=== PATIENT | male | born 1980 | race Asian ===

== ENCOUNTER 2019-12-05 19:06 | Emergency (ER) | payer SELFPAY ==
[2019-12-05] MEDS ORDERED: NA CHLORIDE 0.9% 1,000 ML ONE ×2 (20:32→21:15)
[2019-12-05 20:41] LABS: Absolute Lymphocytes (CBC) 1.4 K/uL (0.7-4.9); Basophils % 0.3 % (0-1.3); Hematocrit 49.4 % (39.6-49.0); Lymphocytes % 13.6 % (15.3-44.8); MPV 9.7 fL (7.6-11.3); RBC Red Blood Cell Count 5.43 M/uL (4.33-5.43)
[2019-12-05 20:41] LABS: Urine Blood TRACE (NEG); Urine Glucose NEGATIVE (NEG); Urine Protein 1+ (NEG); Urine Specific Gravity 1.025 (1.005-1.030)
--- NOTE | 2019-12-05 20:44 | RAD REPORT ---
EXAM DESCRIPTION: RAD - Chest Single View - 12/05/2019 8:33 pm CLINICAL HISTORY: COUGH Chest pain. COMPARISON: No comparisons FINDINGS: Portable technique limits examination quality. The lungs are grossly clear. The heart is normal in size. No displaced fractures. IMPRESSION: No acute intrathoracic process suspected.
--- NOTE | 2019-12-05 20:55 | EDPHYS ---
Physician Documentation [facility] Name: Fitz Marshall Age: 38 yrs Sex: Male : 1980 Arrival Date: 12/05/2019 Time: 19:07 Bed 7 Private MD: Physician Crispin Guadalupe HPI: 12/04 20:01 This 38 yrs old Male presents to ER via Ambulatory with complaints of Headache. vicente 20:01 The patient complains of pain to the top of head, forehead, left frontal area and left vicente side of the back of head. The patient describes the headache as aching. 20:01 Onset: The symptoms/episode began/occurred 2 day(s) ago. The patient or guardian vicente reports cough, that is intermittent. Onset: The symptoms/episode began/occurred 2 day(s) ago. Modifying factors: The symptoms are alleviated by nothing. the symptoms are aggravated by activity. WEAK, COUGH, WORKING OUT. Severity of symptoms: At its worst the pain was mild, in the emergency department the pain is unchanged. Headache History: The patient has had previous headaches and this one is similar to previous episodes. Historical: - Allergies: 19:46 No Known Allergies; lp1 - Home Meds: 19:46 None [Active]; lp1 - PMHx: 19:46 None; lp1 - PSHx: 19:46 None; lp1 - Immunization history:: Adult Immunizations up to date. - Social history:: Smoking status: Patient denies any tobacco usage or history of. - Family history:: not pertinent. ROS: 20:01 Constitutional: Negative for fever, chills, and weight loss, Eyes: Negative for injury, vicente pain, redness, and discharge, ENT: Negative for injury, pain, and discharge, Neck: Negative for injury, pain, and swelling, Cardiovascular: Negative for chest pain, palpitations, and edema, Abdomen/GI: Negative for abdominal pain, nausea, vomiting, diarrhea, and constipation, Back: Negative for injury and pain, : Negative for injury, bleeding, discharge, and swelling, MS/Extremity: Negative for injury and deformity, Skin: Negative for injury, rash, and discoloration, Neuro: Negative for headache, weakness, numbness, tingling, and seizure, Psych: Negative for depression, anxiety, suicide ideation, homicidal ideation, and hallucinations, Allergy/Immunology: Negative for hives, rash, and allergies, Endocrine: Negative for neck swelling, polydipsia, polyuria, polyphagia, and marked weight changes, Hematologic/Lymphatic: Negative for swollen nodes, abnormal bleeding, and unusual bruising. 20:01 Respiratory: Positive for cough, with clear sputum. Exam: 20:01 Constitutional: This is a well developed, well nourished patient who is awake, alert, vicente and in no acute distress. Head/Face: Normocephalic, atraumatic. Eyes: Pupils equal round and reactive to light, extra-ocular motions intact. Lids and lashes normal. Conjunctiva and sclera are non-icteric and not injected. Cornea within normal limits. Periorbital areas with no swelling, redness, or edema. ENT: Nares patent. No nasal discharge, no septal abnormalities noted. Tympanic membranes are normal and external auditory canals are clear. Oropharynx with no redness, swelling, or masses, exudates, or evidence of obstruction, uvula midline. Mucous membranes moist. Neck: Trachea midline, no thyromegaly or masses palpated, and no cervical lymphadenopathy. Supple, full range of motion without nuchal rigidity, or vertebral point tenderness. No Meningismus. Chest/axilla: Normal chest wall appearance and motion. Nontender with no deformity. No lesions are appreciated. Cardiovascular: Regular rate and rhythm with a normal S1 and S2. No gallops, murmurs, or rubs. Normal PMI, no JVD. No pulse deficits. Respiratory: Lungs have equal breath sounds bilaterally, clear to auscultation and percussion. No rales, rhonchi or wheezes noted. No increased work of breathing, no retractions or nasal flaring. Abdomen/GI: Soft, non-tender, with normal bowel sounds. No distension or tympany. No guarding or rebound. No evidence of tenderness throughout. Back: No spinal tenderness. No costovertebral tenderness. Full range of motion. Male : Normal genitalia with no discharge or lesions. Skin: Warm, dry with normal turgor. Normal color with no rashes, no lesions, and no evidence of cellulitis. MS/ Extremity: Pulses equal, no cyanosis. Neurovascular intact. Full, normal range of motion. Neuro: Awake and alert, GCS 15, oriented to person, place, time, and situation. Cranial nerves II-XII grossly intact. Motor strength 5/5 in all extremities. Sensory grossly intact. Cerebellar exam normal. Normal gait. Psych: Awake, alert, with orientation to person, place and time. Behavior, mood, and affect are within normal limits. Vital Signs: 19:22 BP 118 / 87; Pulse 89; Resp 18; Temp 98.4(O); Pulse Ox 99% on R/A; Weight 81.65 kg (R); lp1 Height 5 ft. 9 in. (175.26 cm); Pain 0/10; 21:00 BP 116 / 89; Pulse 66; Resp 16; Pulse Ox 99% ; Pain 0/10; rv 22:00 BP 116 / 83; Pulse 65; Resp 15; Pulse Ox 99% on R/A; rv 23:00 BP 114 / 86; Pulse 64; Resp 15; Pulse Ox 99% on R/A; rv 12/05 00:00 BP 118 / 86; Pulse 70; Resp 17; Temp 98; Pulse Ox 100% on R/A; rv 12/04 19:22 Body Mass Index 26.58 (81.65 kg, 175.26 cm) lp1 MDM: 12/04 19:15 Patient medically screened. [facility] 20:01 Data reviewed: vital signs, nurses notes, lab test result(s), EKG, radiologic studies, vicente plain films. 12/04 20:01 Order name: CBC with Diff; Complete Time: 21:02 [facility] 12/04 21:03 Interpretation: Normal except: HCT 49.4; LYM% 13.6. cp 12/04 20:01 Order name: Comprehensive Metabolic Panel; Complete Time: 22:03 [facility] 12/04 20:01 Order name: CK; Complete Time: 22:03 [facility] 12/04 20:28 Order name: Urine Dipstick--Ancillary (enter results) wv 12/04 20:29 Order name: Urine Microscopic Only; Complete Time: 22:03 w[facility] 12/04 20:01 Order name: Chest Single View XRAY; Complete Time: 20:52 [facility] 12/04 20:01 Order name: EKG; Complete Time: 20:01 [facility] 12/04 21:09 Order name: US Abdomen Limited [facility] 12/04 21:09 Order name: Hepatitis Panel [facility] 12/04 21:09 Order name: Lipase; Complete Time: 22:03 EDMS 03/17 22:16 Order name: CT Abd/Pelvis - IV Contrast Only lt1 12/04 20:01 Order name: Urine Dipstick-Ancillary (obtain specimen); Complete Time: 20:07 [facility] 12/04 20:01 Order name: EKG - Nurse/Tech; Complete Time: 20:07 [facility] Administered Medications: 20:31 Drug: NS 0.9% 1000 ml Route: IV; Rate: 1 bolus; Site: right antecubital; rv 21:36 Follow up: IV Status: Completed infusion; IV Intake: 1000ml rv 21:15 Drug: NS 0.9% 1000 ml Route: IV; Rate: 1 bolus; Site: right antecubital; rv 21:36 Follow up: IV Status: Completed infusion; IV Intake: 1000ml rv Disposition: 12/06/19 00:00 Discharged to Home. Impression: Weakness, Cough, Abnormal results of liver function studies, Headache. - Condition is Stable. - Discharge Instructions: General Headache Without Cause, Weakness, Cough, Adult. - Medication Reconciliation Form, Thank You Letter, Antibiotic Education, Prescription Opioid Use form. - Follow up: Private Physician; When: 2 - 3 days; Reason: Recheck today's complaints, Continuance of care, Re-evaluation by your physician. Follow up: Sudheer Calvin MD; When: 1 - 2 days; Reason: elevated liver enzymes. - Problem is new. - Symptoms have improved. Signatures: Dispatcher [employer] [facility] Crispin Guadalupe MD MD cha Pena, Laura, EDDIE RN lp1 Crispin Gonzalez PA PA cp Vicente, Ronaldo RN RN rv Corrections: (The following items were deleted from the chart) 21:14 21:09 LIPASE+C.LAB.BRZ ordered. [facility] 22:20 20:54 12/05/2019 20:54 Discharged to Home. Impression: Weakness; Cough. Condition is cp Stable. Discharge Instructions: Weakness, Cough, Adult, [id number]-[id number], Weakness, Qjbf-[id number], Cough, Adult. Forms are Medication Reconciliation Form, Thank You Letter, Antibiotic Education, Prescription Opioid Use. Follow up: Private Physician; When: 2 - 3 days; Reason: Recheck today's complaints, Continuance of care, Re-evaluation by your physician. Problem is new. Symptoms have improved. [facility] 12/05 00:00 00:00 12/06/2019 00:00 Discharged to Home. Impression: Weakness; Cough; Abnormal cp results of liver function studies. Condition is Stable. Discharge Instructions: Weakness, Cough, Adult. Forms are Medication Reconciliation Form, Thank You Letter, Antibiotic Education, Prescription Opioid Use. Follow up: Private Physician; When: 2 - 3 days; Reason: Recheck today's complaints, Continuance of care, Re-evaluation by your physician. Problem is new. Symptoms have improved. cp 00:01 00:00 12/06/2019 00:00 Discharged to Home. Impression: Weakness; Cough; Abnormal cp results of liver function studies. Condition is Stable. Discharge Instructions: Weakness, Cough, Adult. Forms are Medication Reconciliation Form, Thank You Letter, Antibiotic Education, Prescription Opioid Use. Follow up: Private Physician; When: 2 - 3 days; Reason: Recheck today's complaints, Continuance of care, Re-evaluation by your physician. Follow up: Sudheer Calvin; When: 1 - 2 days; Reason: elevated liver enzymes. Problem is new. Symptoms have improved. cp 00:08 00:01 12/06/2019 00:00 Discharged to Home. Impression: Weakness; Cough; Abnormal rv results of liver function studies; Headache. Condition is Stable. Discharge Instructions: Weakness, Cough, Adult, General Headache Without Cause. Forms are Medication Reconciliation Form, Thank You Letter, Antibiotic Education, Prescription Opioid Use. Follow up: Private Physician; When: 2 - 3 days; Reason: Recheck today's complaints, Continuance of care, Re-evaluation by your physician. Follow up: Sudheer Calvin; When: 1 - 2 days; Reason: elevated liver enzymes. Problem is new. Symptoms have improved. cp
--- NOTE | 2019-12-05 20:55 | ER ---
Nurse's Notes [facility] Name: Fitz Marshall Age: 38 yrs Sex: Male : 1980 Arrival Date: 12/05/2019 Time: 19:07 Bed 7 Private MD: Diagnosis: Weakness;Cough;Abnormal results of liver function studies;Headache Presentation: 12/04 19:22 Chief complaint: Patient states: States concern of being dehydrated due to working out lp1 last week; States neck pain after working out and fatigue for the past week with a dry cough keeping him up at night; Denies any nausea, vomiting, diarrhea. 19:22 Method Of Arrival: Ambulatory lp1 19:22 Coronavirus screen: The patient has NOT traveled to a country currently being monitored lp1 by the [facility] within the last 14 days. The patient has NOT had contact with any known and/or suspected case of coronavirus. Ebola Screen: No symptoms or risks identified at this time. Initial Sepsis Screen: Does the patient meet any 2 criteria? No. Patient's initial sepsis screen is negative. Does the patient have a suspected source of infection? No. Patient's initial sepsis screen is negative. Risk Assessment: Do you want to hurt yourself or someone else? Patient reports no desire to harm self or others. Onset of symptoms was December 05, 2019. 19:22 Acuity: KINDRA 4 lp1 Triage Assessment: 21:00 Headache History: Denies prior headaches. General: Appears in no apparent distress. rv Pain: Complains of pain in top of head Pain Pain began suddenly, Also complains of no other associated symptoms. 21:00 General: Behavior is calm, cooperative. rv Historical: - Allergies: 19:46 No Known Allergies; lp1 - Home Meds: 19:46 None [Active]; lp1 - PMHx: 19:46 None; lp1 - PSHx: 19:46 None; lp1 - Immunization history:: Adult Immunizations up to date. - Social history:: Smoking status: Patient denies any tobacco usage or history of. - Family history:: not pertinent. Screenin:46 Abuse screen: Denies threats or abuse. Denies injuries from another. Nutritional lp1 screening: No deficits noted. Tuberculosis screening: No symptoms or risk factors identified. Fall Risk None identified. Assessment: 21:00 General: Appears in no apparent distress. comfortable, Behavior is calm, cooperative. rv 21:00 Pain: Denies pain. Neuro: Level of Consciousness is awake, alert, obeys commands, rv Oriented to person, place, time, situation. Cardiovascular: Patient's skin is warm and dry. Respiratory: Airway is patent. GI: No signs and/or symptoms were reported involving the gastrointestinal system. Patient currently denies pain. 22:23 Reassessment: Patient appears in no apparent distress at this time. Patient and/or rv family updated on plan of care and expected duration. Pain level reassessed. Patient is alert, oriented x 3, equal unlabored respirations, skin warm/dry/pink. DENIES ABDOMINAL SYMPTOMS. ALYSSA GONZALEZ TALKED TO THE PATIENT AND DECIDED TO DO ABDOMINAL CT SCAN. 12/05 00:06 Reassessment: Patient appears in no apparent distress at this time. Patient and/or rv family updated on plan of care and expected duration. Pain level reassessed. Patient is alert, oriented x 3, equal unlabored respirations, skin warm/dry/pink. RESULT OF CT SCAN EXPLAINED BY ALYSSA GONZALEZ AND THE PLAN OF CARE. DISCHARGED AMBULATORY, GCS 15. Vital Signs: 12/04 19:22 BP 118 / 87; Pulse 89; Resp 18; Temp 98.4(O); Pulse Ox 99% on R/A; Weight 81.65 kg (R); lp1 Height 5 ft. 9 in. (175.26 cm); Pain 0/10; 21:00 BP 116 / 89; Pulse 66; Resp 16; Pulse Ox 99% ; Pain 0/10; rv 22:00 BP 116 / 83; Pulse 65; Resp 15; Pulse Ox 99% on R/A; rv 23:00 BP 114 / 86; Pulse 64; Resp 15; Pulse Ox 99% on R/A; rv 12/05 00:00 BP 118 / 86; Pulse 70; Resp 17; Temp 98; Pulse Ox 100% on R/A; rv 12/04 19:22 Body Mass Index 26.58 (81.65 kg, 175.26 cm) lp1 ED Course: 12/04 19:07 Patient arrived in ED. rg4 19:15 Alyssa Guadalupe MD is Attending Physician. vicente 19:23 Finn Jeronimo RN is Primary Nurse. rv 19:42 Triage completed. lp1 19:44 Arm band placed on. lp1 19:46 Patient has correct armband on for positive identification. lp1 20:30 Inserted saline lock: 20 gauge in right antecubital area, using aseptic technique. ar5 Blood collected. 20:31 EKG done, by technical assoc. ar5 20:35 Chest Single View XRAY In Process Unspecified. EDMS 21:43 US Abdomen Limited In Process Unspecified. EDMS 22:16 No provider procedures requiring assistance completed. rv 22:20 Alyssa Gonzalez PA is PHCP. cp 23:28 CT Abd/Pelvis - IV Contrast Only In Process Unspecified. EDMS 12/05 00:00 Sudheer Calvin MD is Referral Physician. cp 00:07 IV discontinued, intact, bleeding controlled, No redness/swelling at site. Pressure rv dressing applied. Administered Medications: 12/04 20:31 Drug: NS 0.9% 1000 ml Route: IV; Rate: 1 bolus; Site: right antecubital; rv 21:36 Follow up: IV Status: Completed infusion; IV Intake: 1000ml rv 21:15 Drug: NS 0.9% 1000 ml Route: IV; Rate: 1 bolus; Site: right antecubital; rv 21:36 Follow up: IV Status: Completed infusion; IV Intake: 1000ml rv Intake: 21:36 IV: 1000ml; Total: 1000ml. rv 21:36 IV: 1000ml; Total: 2000ml. rv Outcome: 20:54 Discharge ordered by . vicente 12/05 00:00 Discharge ordered by MD. cp 00:07 Discharged to home ambulatory. rv 00:07 Condition: good 00:07 Discharge instructions given to patient, Instructed on discharge instructions, follow up and referral plans. Demonstrated understanding of instructions, follow-up care. 00:08 Patient left the ED. rv Signatures: Dispatcher [employer] Alyssa Guadalupe MD MD cha Pena, Laura, RN RN lp1 Alyssa Gonzalez PA PA cp Garcia, Rubi rg4 Finn Jeronimo RN RN Shweta Elias ar5 Corrections: (The following items were deleted from the chart) 12/04 19:42 19:22 Chief complaint: Patient states: States concern of being dehydrated due to lp1 working out last week; States neck pain after working out and fatigue for the past week with a dry cough keeping him up at night; Denies any nausea, voming lp1
[2019-12-05 21:04] LABS: Albumin 3.5 g/dL (3.4-5.0); Bilirubin Total 1.8 mg/dL (0.2-1.0); Potassium 3.6 mmol/L (3.5-5.1); Protein, Total 8.8 g/dL (6.4-8.2)
[2019-12-05 21:13] LABS: Urine Bacteria <20 /HPF (NONE SEEN); Urine Culture Reflex Order NOT NEEDED; Urine RBC <5 /HPF (NONE SEEN)
[2019-12-05 21:14] LABS: Urine Urothelial Cells <5 /HPF (NONE SEEN)
--- NOTE | 2019-12-05 22:27 | RAD REPORT ---
EXAM DESCRIPTION: US - Abdomen Exam Limited - 12/05/2019 9:41 pm CLINICAL HISTORY: ABD PAIN COMPARISON: No comparisons FINDINGS: The gallbladder demonstrates multiple small gallstones. No pericholecystic fluid or gallbl adder wall thickening. The common bile duct is normal measuring 4 mm. The liver demonstrates no findings of intrahepatic biliary dilatation. IMPRESSION: Cholelithiasis.
[2019-12-06 00:29] VITALS: BP 118/86; TEMP 98; O2SAT 100
--- NOTE | 2019-12-06 08:49 | EKG ---
Test Date: 2019-12-05 Test Time: 20:09:15 Axminster Weaver: RADHA MEASUREMENT RESULTS: Intervals: Rate: 64 DC: 156 QRSD: 96 QT: 416 QTc: 429 Girard: P: 13 DC: 156 QRS: 6 T: 53 INTERPRETIVE STATEMENTS: Normal sinus rhythm Normal ECG No previous ECG available for comparison Electronically Signed On 12-06-19 08:48:29 CDT by Roni Herring
--- NOTE | 2019-12-06 11:53 | RAD REPORT ---
EXAM DESCRIPTION: Head C Spine Mpr Wo Con CLINICAL HISTORY: 76-year-old female status post fall hitting head TECHNIQUE: Multiple axial CT images of the brain and cervical spine were performed followed by sagit ulises and coronal reconstructed images. The CT study is performed according to ALARA (as low as reasona nohemi achievable) or ALARA/IMAGE GENTLY, with automatic adjustment of mA and/or kV according to patient size. Performed on: 12/05/2019 at 10:50 PM COMPARISON: None. FINDINGS: CT HEAD: There is no evidence of mass, acute mass effect or midline shift. There are no acute extra-axial flui d collections. There is no evidence of acute intracranial hemorrhage. The cerebral sulci and ventricles are prominent consistent with mild cerebral volume loss. There are scattered areas of decreased attenuation within the subcortical and periventricular white m atter most likely due to mild chronic microangiopathy. There is complete opacification of the visualized right maxillary sinus and anterior right ethmoid ai r cells. The mastoid air cells are clear. The orbital contents are grossly unremarkable. No acute osseous abnormalities are identified. There is minimal subcutaneous emphysema over the right occipital scalp soft tissues. CT CERVICAL SPINE: The cervical vertebrae are normal in height. There is normal alignment of the vertebrae. There is mod erate disc space narrowing at C6-C7 and mild disc space narrowing at C5-C6. Bone mineralization is within normal limits. The atlantoaxial articulation is preserved. There is a small osseous fragment a djacent to the right occipital condyle (series 303, image 34 and series 304, image 33) which may repr esent a small avulsion fracture. There is normal alignment of the facet joints on the parasagittal images. There are mild degenerative changes of the cervical spine. There is no evidence of subluxation. There is no significant canal stenosis. There are disc osteophyt e complexes throughout the cervical spine. There is no significant neural foraminal stenosis. The p aravertebral and paraspinal soft tissues are unremarkable. There are carotid artery calcifications. The lung apices are clear. IMPRESSION: CT HEAD: 1. There is no evidence of acute intracranial pathology. 2. Mild cerebral atrophy with findings compatible with chronic microangiopathy. 3. Complete opacification of the visualized right maxillary sinus and anterior right ethmoid air cell s. 4. Minimal subcutaneous emphysema over the right occipital scalp soft tissues. CT CERVICAL SPINE: 1. Suspect small avulsion fracture arising from the right occipital condyle. 2. Mild degenerative changes along the cervical spine as described above. These findings were discussed with Dr. Jacinto on 12/05/2019 at 11:26 PM Central time. Electronically signed by: Nelia Coreas DO 12/05/2019 11:27 PM CDT Due to temporary technical issues with the PACS/Fluency reporting system, reports are being signed by the in house radiologist as a courtesy to ensure prompt reporting. The interpreting radiologist is f ully responsible for the content of the report.
[2019-12-09 03:58] LABS: HBsAG Nonreactive (Nonreactive)
== END 2019-12-06 00:08 | disposition home or self-care (01) ==
LOC: ER 19:06
DX: R94.5 Abnormal results of liver function studies (principal); R05 Cough; R53.1 Weakness
CPT/HCPCS: 36415; 71045; 74177; 76705; 80053; 80074; 81003; 81015; 82550; 83690; 85025; 93005; 96360; 99284; J7030; Q9967